=== PATIENT | male | born 1990 | race Caucasian/White ===

== ENCOUNTER 2016-09-24 13:21 | Emergency (ER) | payer SELFPAY ==
[~2016-09-24] VITALS: Ht 185.4 cm; Wt 127.0 kg
[2016-09-24 13:21] VITALS: BP 142/75
[2016-09-25 15:12] LABS: Lyme Disease IgG/IgM Antibodie <0.91 ISR (0.00-0.90); Lyme Disease IgM Ab Quantitati <0.80 index (0.00-0.79)
--- NOTE | 2016-09-26 14:35 | ECGEPIP ---
Stationary ECG Study [facility] - ED Test Date: 2016-09-24 Pat Name: DANIEL BRUNO Department: Room: - Gender: M Elevated Guard: rn : 1990 Requested By: SACHA Pittman Order Number: [id number] Reading MD: Mary Driver Measurements Intervals [place] Rate: 75 P: 52 OR: 190 QRS: 10 QRSD: 105 T: 31 QT: 378 QTc: 423 Interpretive Statements SINUS RHYTHM WITH SINUS ARRHYTHMIA NO PRIOR FOR COMPARISON Electronically Signed On 09-26-2016 14:34:43 EDT by Mary Driver
== END 2016-09-24 14:15 | disposition home or self-care (01) ==
LOC: M ED 14:07
DX: S20.469A Insect bite (nonvenomous) of unspecified back wall of thorax, initial encounter (principal); W57.XXXA Bitten or stung by nonvenomous insect and other nonvenomous arthropods, initial encounter; Y92.89 Other specified places as the place of occurrence of the external cause; Y93.89 Activity, other specified; Y99.9 Unspecified external cause status